=== PATIENT | female | born 2000 | race Hispanic/Latino ===

== ENCOUNTER 2019-03-24 21:52 | Emergency (ER) | payer MEDICAID, OTHER ==
[2019-03-24 22:54] LABS: APPEARANCE,URINE Clear (CLEAR); BILIRUBIN,URINE Negative (NEGATIVE); COLOR,URINE Yellow (YELLOW); GLUCOSE, URINE (UA) Negative (NEGATIVE); KETONES,URINE Negative (NEGATIVE); LEUKOCYTE ESTERASE ,URINE Negative (NEGATIVE); NITRATE,URINE Negative (NEGATIVE); OCCULT BLOOD,URINE Negative (NEGATIVE); PH,URINE 6.5 (5.0-8.0); PROTEIN,URINE Negative (NEGATIVE); UROBILINOGEN,URINE 0.2 mg/dL (0.2-1.0)
[2019-03-24] MEDS ORDERED: SODIUM CHLORIDE 0.9% 1000ML 1,000 ML IV ONE (23:43)
[2019-03-24 23:47] LABS: BASOPHILS % (AUTO) 0.5 % (0.0-5.0); EOSINOPHILS % (AUTO) 4.9 % (0.0-8.0); HEMATOCRIT 34.2 % (36-48); LYMPHOCYTES % (AUTO) 30.5 % (21.0-51.0); MEAN CORPUSCULAR HEMOGLOBIN 30.2 pg (27.0-33.0); MEAN CORPUSCULAR HGB CONC 33.6 g/dL (32.0-36.0); MEAN CORPUSCULAR VOLUME 89.8 fL (80-100); MONOCYTES % (AUTO) 7.7 % (3.0-13.0); PLATELET COUNT (AUTO) 220 K/uL (130-400); RED BLOOD CELL COUNT(AUTO) 3.81 MIL/uL (4.00-5.50); RED CELL DISTRIBUTION WIDTH 11.9 % (11.0-15.5); WHITE BLOOD COUNT (AUTO) 8.4 K/uL (4.8-10.8)
[2019-03-24 23:57] LABS: CREATININE 0.7 mg/dL (0.5-1.5); POTASSIUM 4.1 mmol/L (3.5-5.1)
[2019-03-25 00:23] LABS: ALBUMIN 3.9 g/dL (3.5-5.0); BILIRUBIN,TOTAL 0.5 mg/dL (0.2-1.0); TOTAL PROTEIN, SERUM 7.2 g/dL (6.0-8.3)
== END 2019-03-25 02:02 | disposition home or self-care (01) ==
LOC: EDH 21:52
DX: O20.0 Threatened abortion (principal); O99.512 Diseases of the respiratory system complicating pregnancy, second trimester; J45.909 Unspecified asthma, uncomplicated; Z3A.01 Less than 8 weeks gestation of pregnancy
CPT/HCPCS: 36415; 76801; 80053; 81003; 84702; 85025; 86850; 86900; 86901; 99285; J7030

== ENCOUNTER 2019-07-25 02:22 | Observation (INO) | payer MEDICAID ==
[~2019-07-25] VITALS: Ht 160 cm; Wt 75.3 kg
[2019-07-25 02:54] LABS: APPEARANCE,URINE Clear (CLEAR); BILIRUBIN,URINE Negative (NEGATIVE); COLOR,URINE Yellow (YELLOW); GLUCOSE, URINE (UA) Negative (NEGATIVE); KETONES,URINE Negative (NEGATIVE); LEUKOCYTE ESTERASE ,URINE Large (NEGATIVE); NITRATE,URINE Negative (NEGATIVE); OCCULT BLOOD,URINE Large (NEGATIVE); PROTEIN,URINE Trace mg/dL (NEGATIVE)
[2019-07-25 03:01] LABS: AMPHET/METH SCREEN,URINE NEGATIVE (NEGATIVE); BARBITURATE SCREEN, URINE NEGATIVE (NEGATIVE); BENZODIAZEPINES SCREEN,URINE NEGATIVE (NEGATIVE); CANNABINOID SCREEN,URINE NEGATIVE (NEGATIVE); COCAINE SCREEN,URINE NEGATIVE (NEGATIVE); OPIATE SCREEN,URINE NEGATIVE (NEGATIVE); PHENCYCLIDINE SCREEN,URINE NEGATIVE (NEGATIVE)
[2019-07-25 03:04] LABS: AMORPHOUS SEDIMENT,UR Few /LPF (None Seen); BACTERIA,URINE Rare /HPF (None Seen); SQUAMOUS EPITHELIAL CELL,UR Moderate /HPF (0-2)
[2019-07-25 03:19] VITALS: BP 102/58
[2019-07-25] MEDS ORDERED: CEFTRIAXONE SODIUM 1 GM IVP SCH (03:20)
[2019-07-25] MEDS ORDERED: LACTATED RINGERS 1000ML 1,000 ML IV SCH (03:30)
== END 2019-07-25 07:08 | disposition home or self-care (01) ==
LOC: EDH 02:22 → LDH 02:23
PROVIDERS: ADMIT Obstetrics & Gynecology; ATTEND Obstetrics & Gynecology
DX: O46.8X2 Other antepartum hemorrhage, second trimester (principal); O99.512 Diseases of the respiratory system complicating pregnancy, second trimester; J45.909 Unspecified asthma, uncomplicated; Z3A.22 22 weeks gestation of pregnancy
CPT/HCPCS: 76805; 80305; 81001; 87088; 96374; 99284; G0378 ×5; J0696; J7120 ×2; 96360; 96361

== ENCOUNTER 2021-09-03 23:12 | Emergency (ER) | payer MEDICAID ==
[~2021-09-03] VITALS: Ht 157.5 cm; Wt 70.8 kg
[2021-09-04 00:26] LABS: APPEARANCE,URINE Cloudy (CLEAR); BILIRUBIN,URINE Negative (NEGATIVE); COLOR,URINE Yellow (YELLOW); GLUCOSE, URINE (UA) Negative (NEGATIVE); KETONES,URINE Trace mg/dL (NEGATIVE); LEUKOCYTE ESTERASE ,URINE Small (NEGATIVE); NITRATE,URINE Negative (NEGATIVE); OCCULT BLOOD,URINE Large (NEGATIVE); PH,URINE 5.5 (5.0-8.0); PROTEIN,URINE Trace mg/dL (NEGATIVE)
[2021-09-04 00:37] LABS: BASOPHILS % (AUTO) 0.5 % (0.0-5.0); EOSINOPHILS % (AUTO) 7.4 % (0.0-8.0); HEMATOCRIT 32.6 % (36-48); LYMPHOCYTES % (AUTO) 34.7 % (21.0-51.0); MEAN CORPUSCULAR HEMOGLOBIN 29.2 pg (27.0-33.0); MEAN CORPUSCULAR HGB CONC 32.5 g/dL (32.0-36.0); MEAN CORPUSCULAR VOLUME 89.8 fL (79-99); MONOCYTES % (AUTO) 6.1 % (3.0-13.0); PLATELET COUNT (AUTO) 211 K/uL (130-400); RED BLOOD CELL COUNT(AUTO) 3.63 MIL/uL (4.00-5.50); RED CELL DISTRIBUTION WIDTH 12.2 % (11.0-15.5); WHITE BLOOD COUNT (AUTO) 7.7 K/uL (4.8-10.8)
[2021-09-04 00:39] LABS: CREATININE 0.6 mg/dL (0.5-1.5); POTASSIUM 3.7 mmol/L (3.5-5.1)
[2021-09-04 00:45] LABS: RBC,URINE 0-1 /HPF (0-1)
[2021-09-04 00:46] LABS: ALBUMIN 3.7 g/dL (3.5-5.0); BILIRUBIN,TOTAL 0.5 mg/dL (0.2-1.0); TOTAL PROTEIN, SERUM 7.1 g/dL (6.0-8.3)
[2021-09-04 00:46] LABS: BACTERIA,URINE None Seen /HPF (None Seen); SQUAMOUS EPITHELIAL CELL,UR Moderate /HPF (0-2)
[2021-09-04 00:48] LABS: MUCUS,URINE Few LPF (None Seen)
[2021-09-04] MEDS ORDERED: CEPH500B PO (01:29)
[2021-09-04 02:22] VITALS: BP 115/62
== END 2021-09-04 02:23 | disposition home or self-care (01) ==
LOC: EDH 23:12
DX: O23.40 Unspecified infection of urinary tract in pregnancy, unspecified trimester (principal); N39.0 Urinary tract infection, site not specified; Z3A.00 Weeks of gestation of pregnancy not specified
CPT/HCPCS: 36415; 80053; 81001; 84702; 85025; 86900; 86901

== ENCOUNTER 2022-08-05 02:43 | Observation (INO) | payer MEDICAID ==
[~2022-08-05] VITALS: Ht 157.5 cm; Wt 80.3 kg
[~2022-08-05 02:43] MED LIST: CEPH500B PO
[2022-08-05] MEDS: LACTATED RINGERS 1000ML 1,000 ML IV SCH ×2 (03:15→22:46)
[2022-08-05 03:16] LABS: APPEARANCE,URINE CLOUDY (CLEAR); BILIRUBIN,URINE NEGATIVE (NEGATIVE); COLOR,URINE LIGHT-ORANGE (YELLOW); GLUCOSE, URINE (UA) NEGATIVE (NEGATIVE); KETONES,URINE NEGATIVE (NEGATIVE); LEUKOCYTE ESTERASE ,URINE NEGATIVE Leu/uL (NEGATIVE); NITRATE,URINE NEGATIVE (NEGATIVE); OCCULT BLOOD,URINE LARGE (NEGATIVE); PH,URINE 5.5 (5.0-8.0); PROTEIN,URINE 20 mg/dL (NEGATIVE); UROBILINOGEN,URINE 0.2 mg/dL (0.2-1.0)
[2022-08-05 03:20] LABS: BACTERIA,URINE MOD /HPF (None Seen); MUCUS,URINE RARE LPF (None Seen); RBC,URINE TNTC /HPF (0-1); SQUAMOUS EPITHELIAL CELL,UR FEW /HPF (0-2); WBC,URINE 26-50 /HPF (0-1)
[2022-08-05 03:22] LABS: AMPHET/METH SCREEN,URINE NEGATIVE (NEGATIVE); BARBITURATE SCREEN, URINE NEGATIVE (NEGATIVE); BENZODIAZEPINES SCREEN,URINE NEGATIVE (NEGATIVE); CANNABINOID SCREEN,URINE NEGATIVE (NEGATIVE); COCAINE SCREEN,URINE NEGATIVE (NEGATIVE); OPIATE SCREEN,URINE NEGATIVE (NEGATIVE); PHENCYCLIDINE SCREEN,URINE NEGATIVE (NEGATIVE)
[2022-08-05 03:48] VITALS: BP 115/68
[2022-08-05] MEDS ORDERED: TERBUTALINE SULFATE VIAL 1MG/ML SQ ONE (03:58)
[2022-08-05] MEDS ORDERED: LACTATED RINGERS 1000ML 1,000 ML IV SCH (04:00)
[2022-08-05] MEDS: TERBUTALINE SULFATE VIAL 1MG/ML SQ SCH ×3 (04:05→05:31)
[2022-08-05 05:18] LABS: HEMATOCRIT 30.9 % (36-48); MEAN CORPUSCULAR HEMOGLOBIN 31.1 pg (27.0-33.0); MEAN CORPUSCULAR HGB CONC 33.7 g/dL (32.0-36.0); MEAN CORPUSCULAR VOLUME 92.5 fL (79-99); RED BLOOD CELL COUNT(AUTO) 3.34 MIL/uL (4.00-5.50); RED CELL DISTRIBUTION WIDTH 12.9 % (11.0-15.5); WHITE BLOOD COUNT (AUTO) 14.1 K/uL (4.8-10.8)
[2022-08-05] MEDS ORDERED: MAGNESIUM SULFATE 40GM/1000ML 1,000 ML IV ONE (05:34)
[2022-08-05] MEDS ORDERED: MAGNESIUM 4GM PREMIX 100ML 100 ML IV ONE (05:34)
[2022-08-05] MEDS: CELESTONE SOLUSPAN 6 MG/ML 5ML VIAL IM SCH (05:44)
[2022-08-05] MEDS ORDERED: MAGNESIUM 4GM PREMIX 100ML 100 ML IV SCH (06:00)
[2022-08-05] MEDS ORDERED: AMPICILLIN 2GM+NS 100ML 100 ML IV SCH (06:00)
[2022-08-05] MEDS ORDERED: CALCIUM GLUC 1GM/10ML VIAL IV PRN (06:00)
[2022-08-05] MEDS: MAGNESIUM SULFATE 40GM/1000ML 1,000 ML IV PRN (06:05)
[2022-08-05] MEDS ORDERED: AMPICILLIN 2GM+NS 100ML 100 ML IV ONE (06:30)
[2022-08-05] MEDS: AMPICILLIN 1GM+NS 50ML 50 ML IV SCH ×4 (10:02→22:44)
[2022-08-05 13:56] LABS: RAPID PLASMA REAGIN NONREACTIVE (NONREACTIVE)
[2022-08-06] MEDS: AMPICILLIN 1GM+NS 50ML 50 ML IV SCH ×3 (01:38→10:07)
[2022-08-06] MEDS: MAGNESIUM SULFATE 40GM/1000ML 1,000 ML IV PRN (01:50)
[2022-08-06] MEDS: CELESTONE SOLUSPAN 6 MG/ML 5ML VIAL IM SCH (05:44)
[2022-08-06] MEDS: LACTATED RINGERS 1000ML 1,000 ML IV SCH (12:30)
[2022-08-08] MEDS ORDERED: IBUP-2697 PO (14:48)
== END 2022-08-06 15:32 | disposition home or self-care (01) ==
LOC: EDH 02:43 → LDH 02:44
PROVIDERS: ADMIT Obstetrics & Gynecology; ATTEND Obstetrics & Gynecology
DX: O46.92 Antepartum hemorrhage, unspecified, second trimester (principal); O62.9 Abnormality of forces of labor, unspecified; O21.2 Late vomiting of pregnancy; Z3A.26 26 weeks gestation of pregnancy; Z79.899 Other long term (current) drug therapy; Z98.890 Other specified postprocedural states
CPT/HCPCS: 96372 ×5; 96361 ×2; 96365; 96366 ×3; 59025; 96368; 80305; 85027; 86592; 86850; 86900; 86901; 87088; 87340; 86701; 87390; 81001; 36415; 76805; G0378 ×36; J7120 ×3; J0702; J3105; J3475 ×3; J0290 ×8; A4600; A4510; A4314; 96360